=== PATIENT | male | born 1995 | race Caucasian/White ===

== ENCOUNTER 2019-01-21 11:25 | Day surgery (SDC) | payer OTHER ==
[~2019-01-21] VITALS: Ht 172.7 cm; Wt 63.3 kg
[~2019-01-21 11:25] MED LIST: ADVIL100 MG PO; AMOX250 PO; AZIT200SU PO; CODACEE120 PO; LOPE2EL PO; PEDIACARE; PROM12.5S PR
--- NOTE | 2019-01-21 17:07 | NUR ---
01/21/19 170 Tran Rubio PT DENIES PAIN AND NAUSEA. PT SPITTING SMALL AMOUNTS OF BLOODY SALIVA INTO SMALL BASIN. PT FOLLOWING DIRECTIONS OF NOT FORCEFULLY SPITTING. PT EAGER TO GO HOME; MOTHER STS CONFIDENT IN DISCHARGE AND READY TO LEAVE.
== END 2019-01-21 16:47 | disposition home or self-care (01) ==
LOC: ORSCSDS 11:25
PROVIDERS: Dentist Pediatric Dentistry
PROC: 0CDXXZ1 Extraction of Lower Tooth, Multiple, External Approach (ICD-10-PCS; principal; 2019-01-21 13:15)
PROC: 0CDWXZ1 Extraction of Upper Tooth, Multiple, External Approach (ICD-10-PCS; principal; 2019-01-21 13:15)
DX: K02.9 Dental caries, unspecified (principal); F84.0 Autistic disorder; F91.3 Oppositional defiant disorder
CPT/HCPCS: J1100; J1885; J2250; J2405; J3010; J7120